=== PATIENT | female | born 1985 | race African-American/Black ===

== ENCOUNTER 2017-01-04 07:01 | Emergency (ER) | payer MEDICAID ==
[~2017-01-04] VITALS: Ht 162.6 cm; Wt 55.0 kg
[2017-01-04 11:00] VITALS: BP 138/94
[2017-01-04] MEDS ORDERED: IBUPROFEN 600MG TABLET PO ONE (11:00)
== END 2017-01-04 14:03 | disposition home or self-care (01) ==
LOC: ER 07:22
DX: S32.2XXA Fracture of coccyx, initial encounter for closed fracture (principal); S52.121A Displaced fracture of head of right radius, initial encounter for closed fracture; F17.200 Nicotine dependence, unspecified, uncomplicated; Y04.0XXA Assault by unarmed brawl or fight, initial encounter; Y93.89 Activity, other specified; Y92.89 Other specified places as the place of occurrence of the external cause; Y99.8 Other external cause status
CPT/HCPCS: 29105; 72220; 73080; 81025; 99284; A4565